=== PATIENT | female | born 1975 | race Caucasian/White ===

== ENCOUNTER 2018-10-08 02:22 | Outpatient (CLI) | payer BC, SELFPAY ==
[2018-10-08 11:53] LABS: ALT 16 U/L (12-78); AST 17 U/L (15-37); Albumin 3.9 g/dL (3.4-5.0); Alkaline Phosphatase 53 U/L (46-116); Anion Gap 10.9 mmol/L (3-11); BUN 15 mg/dL (7-18); Bilirubin, Total 0.5 mg/dL (0.2-1.0); CO2 25.1 mmol/L (21.0-32.0); CREATININE 0.98 mg/dL (0.55-1.02); Calcium 8.8 mg/dL (8.5-10.1); Chloride 104 mmol/L (98-107); Cholesterol 217 mg/dL (50-200); Glucose 91 mg/dL (70-100); HDL Cholesterol 81 mg/dL (40-60); LDL CHOLESTEROL 119 mg/dL (<100); Potassium 3.3 mmol/L (3.5-5.1); Sodium 140 mmol/L (136-145); Total Protein 7.3 g/dL (6.4-8.2); Triglyceride 121 mg/dL (30-150)
== END 2018-10-08 02:42 ==
PROVIDERS: PCP Family Medicine; Visit Provider Family Medicine
DX: Z00.00 Encounter for general adult medical examination without abnormal findings (principal); Z13.220 Encounter for screening for lipoid disorders; Z13.228 Encounter for screening for other metabolic disorders
CPT/HCPCS: 36415; 80053; 80061; 83721

== ENCOUNTER 2018-10-08 11:04 | Outpatient (CLI) | payer BC, SELFPAY ==
--- NOTE | 2018-10-08 13:34 | DI.RAD_ITS ---
SYMPTOMS/DIAGNOSIS: LEFT THUMB PAIN, M79.645 LEFT THUMB: Three views. At the 1st carpometacarpal joint, there does appear to be joint space narrowing and marginal osteophytes present. No acute fracture or dislocation is appreciated. The metacarpophalangeal joint and interphalangeal joint of the thumb appear well maintained. The bones are normally mineralized. No radiopaque foreign bodies are seen in the soft tissues. IMPRESSION: Mild osteoarthritis of the 1st carpometacarpal joint.
== END 2018-10-08 11:24 ==
PROVIDERS: PCP Family Medicine; Visit Provider Family Medicine
DX: M79.645 Pain in left finger(s) (principal); M18.12 Unilateral primary osteoarthritis of first carpometacarpal joint, left hand
CPT/HCPCS: 73140

== ENCOUNTER 2019-10-14 01:27 | Outpatient (CLI) | payer BC, SELFPAY ==
[2019-10-14 11:15] LABS: ALT 18 U/L (14-59); AST 15 U/L (15-37); Albumin 3.8 g/dL (3.4-5.0); Alkaline Phosphatase 48 U/L (46-116); Anion Gap 10.7 mmol/L (3-11); BUN 11 mg/dL (7-18); Bilirubin, Total 0.7 mg/dL (0.2-1.0); CO2 25.3 mmol/L (21.0-32.0); CREATININE 0.83 mg/dL (0.55-1.02); Calcium 8.5 mg/dL (8.5-10.1); Calculated LDL 100 mg/dL (<100); Chloride 105 mmol/L (98-107); Cholesterol 193 mg/dL (<200); Glucose 88 mg/dL (74-106); HDL Cholesterol 75 mg/dL (40-60); Potassium 4.1 mmol/L (3.5-5.1); Sodium 141 mmol/L (136-145); Triglyceride 94 mg/dL (<150)
== END 2019-10-14 01:47 ==
PROVIDERS: PCP Family Medicine; Visit Provider Family Medicine
DX: Z00.00 Encounter for general adult medical examination without abnormal findings (principal); Z13.220 Encounter for screening for lipoid disorders; Z13.228 Encounter for screening for other metabolic disorders
CPT/HCPCS: 36415; 80053; 80061

== ENCOUNTER 2019-10-14 12:19 | Outpatient (REF) | payer BC, SELFPAY ==
--- NOTE | 2019-10-14 11:30 | PAPFT_PTH ---
PATIENT: Donna Ramos LOC: [facility] U#:[id number] AGE/SX: 44/F ROOM: RE10/14/[address]: Shivani Bartlett MD, DC : 1975 BED: DIS: 10/14/2019 SPEC #: [id number] RECD: 10/14/19 18:20 STATUS: ONEIL FERNANDEZ #: [id number] GILMAR: 10/14/19 11:[address]: Shivani Bartlett DEPT: [facility] Cytology RECD BY: Jayda Chiang Tissues: 1 - CX/ENDOCX FOR PAP SMEARS Procedures: PAP THIN PREP/UVM Screening HPV DNA PROBE Comments: [id number]
== END 2019-10-14 12:39 ==
LOC: LBN 12:19
PROVIDERS: PCP Family Medicine; Visit Provider Family Medicine
DX: Z12.4 Encounter for screening for malignant neoplasm of cervix (principal); Z11.51 Encounter for screening for human papillomavirus (HPV)
CPT/HCPCS: 88142; 87624

== ENCOUNTER 2020-10-19 02:43 | Outpatient (CLI) | payer BC, SELFPAY ==
[2020-10-19 12:42] LABS: Abs Immature Grans 0.02 10^3/uL (0.0-0.06); Absolute Basophil Count 0.07 10^3/uL (0.0-0.2); Absolute Eosinophil Count 0.32 10^3/uL (0.0-0.7); Absolute Lymphocyte Count 2.08 10^3/uL (1.2-3.4); Absolute Monocyte Count 0.43 10^3/uL (0.1-0.8); Absolute Neutrophil Count 5.33 10^3/uL (1.2-6.7); Basophils % 0.8; Eosinophils % 3.9; HCT 41.3 % (36.0-46.0); HGB 13.8 g/dL (11.2-15.7); Immature Grans % 0.2; Lymphocytes % 25.2; MCH 32.4 pg (27.0-33.0); MCHC 33.4 % (32.0-36.0); MCV 96.9 fL (80-95); MPV 9.9 fL (8.0-11.0); Monocytes % 5.2; Neutrophils % 64.7; Nucleated RBC 0 %; Platelet Count 305 10^3/uL (130-400); RBC 4.26 10^6/uL (3.93-5.22); RDW 12.2 % (11.7-14.6); WBC 8.25 10^3/uL (4.4-10.8)
[2020-10-19 13:02] LABS: Hemoglobin A1C 4.9 % (<5.7)
[2020-10-19 13:19] LABS: ALT 20 U/L (14-59); AST 17 U/L (15-37); Alkaline Phosphatase 49 U/L (46-116); Anion Gap 7.4 mmol/L (3-11); BUN 12 mg/dL (7-18); Bilirubin, Total 0.7 mg/dL (0.2-1.0); CO2 26.6 mmol/L (21.0-32.0); CREATININE 0.9 mg/dL (0.55-1.02); Calcium 9.3 mg/dL (8.5-10.1); Chloride 104 mmol/L (98-107); Glucose 89 mg/dL (74-106); Potassium 4.3 mmol/L (3.5-5.1); Sodium 138 mmol/L (136-145); TSH (W/Ref FT4) 1.36 uIU/mL (0.36-3.74); Total Protein 7.5 g/dL (6.4-8.2); Vitamin B12 158 pg/mL (193-986)
== END 2020-10-19 02:44 | disposition home or self-care (01) ==
LOC: LOS 02:43
PROVIDERS: PCP Family Medicine; Visit Provider Family Medicine
DX: Z00.00 Encounter for general adult medical examination without abnormal findings (principal); E11.9 Type 2 diabetes mellitus without complications; I10 Essential (primary) hypertension
CPT/HCPCS: 36415; 80053; 82607; 83036; 84443; 85025

== ENCOUNTER 2021-04-05 01:34 | Outpatient (CLI) | payer BC, SELFPAY ==
--- NOTE | 2021-04-05 12:46 | DI.RAD_ITS ---
Exam(s) XR LUMBAR SPINE COMPLETE EXAM: XR LUMBAR SPINE COMPLETE CLINICAL HISTORY: LOW BACK PAIN, M54.5. TECHNIQUE: 2D digital imaging was performed. COMPARISON: No exams were available for comparison FINDINGS: BONES: No fracture or destructive lesion. Vertebral bodies are unremarkable. No facet hypertrophy suman ntified. DISKS: Mild narrowing of the L5-S1 disc and small endplate osteophytes. The remaining intervertebral disc spaces are maintained. ALIGNMENT: Lumbar spinal alignment is within normal limits. SOFT TISSUE: Normal. IUD. Bowel gas pattern unremarkable. IMPRESSION: Mild degenerative disc changes at L5-S1. DATA REPOSITORY: RADIATION DOSE DELIVERED:
--- NOTE | 2021-04-05 12:46 | DI.RAD_ITS ---
Exam(s) XR KNEE LT 3V AP,LAT,ADELA EXAM: XR KNEE LT 3V AP,LAT,ADELA CLINICAL HISTORY: LOW BACK PAIN,LT KNEE PAIN, M25.562. TECHNIQUE: 2D digital imaging was performed. COMPARISON: No exams were available for comparison FINDINGS: BONES: No acute fracture is present. No bony destructive lesion is seen. JOINTS: The knee is normally aligned. No joint effusion is seen. Mild narrowing of the medial femoral tibial joint space and mild periarticular spurring. Mild spurring at the articular aspect of the pa tella. SOFT TISSUE: Normal. IMPRESSION: Mild degenerative changes. DATA REPOSITORY: RADIATION DOSE DELIVERED:
== END 2021-04-05 01:54 ==
PROVIDERS: PCP Family Medicine; Visit Provider Family Medicine
DX: M47.817 Spondylosis without myelopathy or radiculopathy, lumbosacral region; M17.12 Unilateral primary osteoarthritis, left knee
CPT/HCPCS: 73562; 72110

== ENCOUNTER 2021-04-05 02:52 | Outpatient (CLI) | payer BC, SELFPAY ==
[2021-04-05 14:25] LABS: Vitamin B12 518 pg/mL (193-986)
[2021-04-06 10:44] LABS: Lyme Ab w Rflx to Lyme Confirm Negative (Negative)
== END 2021-04-05 02:53 | disposition home or self-care (01) ==
LOC: LBO 02:52
PROVIDERS: PCP Family Medicine; Visit Provider Family Medicine
DX: E53.8 Deficiency of other specified B group vitamins (principal); W57.XXXA Bitten or stung by nonvenomous insect and other nonvenomous arthropods, initial encounter; T14.8XXA Other injury of unspecified body region, initial encounter
CPT/HCPCS: 36415; 82607; 86618

== ENCOUNTER 2021-11-21 04:20 | Outpatient (CLI) | payer BC, SELFPAY ==
[2021-11-21 13:52] LABS: ALT 20 U/L (14-59); AST 21 U/L (15-37); Albumin 3.9 g/dL (3.4-5.0); Alkaline Phosphatase 72 U/L (46-116); Anion Gap 9.3 mmol/L (3-11); BUN 9 mg/dL (7-18); Bilirubin, Total 0.7 mg/dL (0.2-1.0); CO2 28.7 mmol/L (21.0-32.0); CREATININE 0.8 mg/dL (0.55-1.02); Calcium 8.9 mg/dL (8.5-10.1); Chloride 101 mmol/L (98-107); Glucose 97 mg/dL (74-106); Potassium 3.3 mmol/L (3.5-5.1); Sodium 139 mmol/L (136-145); Total Protein 7.1 g/dL (6.4-8.2)
[2021-11-22 14:54] LABS: Vitamin B12 450 pg/mL (193-986)
== END 2021-11-21 04:21 | disposition home or self-care (01) ==
LOC: LBO 04:20
PROVIDERS: PCP Family Medicine; Visit Provider Family Medicine
DX: Z00.00 Encounter for general adult medical examination without abnormal findings (principal)
CPT/HCPCS: 36415; 80053; 82607

== ENCOUNTER 2022-12-12 09:40 | Outpatient (CLI) | payer OTHER, SELFPAY ==
[2022-12-12 12:51] LABS: ALT 33 U/L (14-59); AST 31 U/L (15-37); Albumin 4.1 g/dL (3.4-5.0); Alkaline Phosphatase 80 U/L (46-116); Anion Gap 9.3 mmol/L (3-11); BUN 11 mg/dL (7-18); CO2 27.7 mmol/L (21.0-32.0); CREATININE 0.9 mg/dL (0.55-1.02); Calcium 8.9 mg/dL (8.5-10.1); Calculated LDL 133 mg/dL (<100); Chloride 104 mmol/L (98-107); Cholesterol 240 mg/dL (<200); Estimated GFR 79.35 (mL/min/1.73m2); Glucose 97 mg/dL (74-106); HDL Cholesterol 96 mg/dL (40-60); Potassium 3.9 mmol/L (3.5-5.1); Sodium 141 mmol/L (136-145); TSH (W/Ref FT4) 1.12 uIU/mL (0.36-3.74); Total Protein 7.8 g/dL (6.4-8.2); Triglyceride 55 mg/dL (<150)
== END 2022-12-12 09:41 | disposition home or self-care (01) ==
LOC: LOS 09:41
PROVIDERS: PCP Family Medicine; Referring Provider Family Medicine; Visit Provider Family Medicine
DX: Z00.00 Encounter for general adult medical examination without abnormal findings (principal); I10 Essential (primary) hypertension
CPT/HCPCS: 36415; 80053; 80061; 84443

== ENCOUNTER 2022-12-12 10:51 | Outpatient (REF) | payer OTHER, SELFPAY ==
--- NOTE | 2022-12-12 10:00 | PAPFT_PTH ---
PATIENT: Donna Ramos LOC: [facility] U#:[id number] AGE/SX: 47/F ROOM: RE12/12/[address]: Shivani Bartlett MD, DC : 1975 BED: DIS: 12/12/2022 SPEC #: [id number] RECD: 12/12/22 13:02 STATUS: ONEIL REQ #: [id number] GILMAR: 12/12/22 10:[address]: Shivani Bartlett DEPT: [facility] Cytology RECD BY: Jayda Chiang Tissues: 1 - CX/ENDOCX FOR PAP SMEARS Procedures: PAP THIN PREP/UVM Screening HPV DNA PROBE Comments: [id number]
== END 2022-12-12 10:52 | disposition home or self-care (01) ==
LOC: LBN 10:51
PROVIDERS: PCP Family Medicine; Visit Provider Family Medicine
DX: Z12.4 Encounter for screening for malignant neoplasm of cervix (principal); Z11.51 Encounter for screening for human papillomavirus (HPV)
CPT/HCPCS: 88142; 87624

== ENCOUNTER → 2023-09-12 00:58 | Outpatient (CLI) | payer OTHER, SELFPAY ==
--- NOTE | 2023-09-12 07:45 | DI.RAD_ITS ---
Exam(s) XR SHOULDER RT COMPLETE 2+V EXAM: XR SHOULDER RT COMPLETE 2+V CLINICAL HISTORY: r shoulder pain X6 months,m25.511. TECHNIQUE: 2D digital imaging was performed. COMPARISON: No exams were available for comparison FINDINGS: Five views. There is no evidence of fracture or dislocation nor abnormal soft tissue calcifications. No obvious degenerative changes in the glenohumeral joint. Mild degenerative changes in the AC joint. The a ch romium appears somewhat downsloping. There is no evidence of os acromiale. IMPRESSION: No acute osseous findings. However, the a chromium appears somewhat downsloping and this may be caus ing impingement upon the rotator cuff mechanism. If clinically indicated follow-up MRI can be perfor med. DATA REPOSITORY: RADIATION DOSE DELIVERED:
== END ==
PROVIDERS: PCP Family Medicine; Visit Provider Family Medicine
DX: M25.511 Pain in right shoulder (principal)
CPT/HCPCS: 73030

== ENCOUNTER 2024-01-10 05:51 | Outpatient (CLI) | payer OTHER, SELFPAY ==
[2024-01-10 12:31] LABS: ALT 33 U/L (14-59); AST 34 U/L (15-37); Alkaline Phosphatase 78 U/L (46-116); BUN 9 mg/dL (7-18); Bilirubin, Total 0.7 mg/dL (0.2-1.0); CREATININE 0.9 mg/dL (0.55-1.02); Calcium 8.8 mg/dL (8.5-10.1); Chloride 103 mmol/L (98-107); Estimated GFR 78.86 (mL/min/1.73m2); Glucose 84 mg/dL (74-106); Potassium 3.4 mmol/L (3.5-5.1); Sodium 142 mmol/L (136-145); Total Protein 7.6 g/dL (6.4-8.2)
[2024-01-10 20:30] LABS: Calculated LDL 147 mg/dL (<100); Cholesterol 253 mg/dL (<200); HDL Cholesterol 90 mg/dL (40-60); Triglyceride 84 mg/dL (<150)
== END 2024-01-10 05:52 | disposition home or self-care (01) ==
LOC: LOS 05:51
PROVIDERS: PCP Family Medicine; Visit Provider Family Medicine
DX: I10 Essential (primary) hypertension (principal); Z00.00 Encounter for general adult medical examination without abnormal findings
CPT/HCPCS: 36415; 80053; 80061

== ENCOUNTER → 2024-01-25 00:05 | Outpatient (CLI) | payer OTHER, SELFPAY ==
--- NOTE | 2024-01-25 06:45 | DI.MRI_ITS ---
Exam(s) MR UPPER JOINT RT WO EXAM: MR UPPER JOINT RT WO CLINICAL HISTORY: r shoulder pain despite conservative care,M25.511. TECHNIQUE: Multiplanar multisequence MRI was performed. COMPARISON: CR XR SHOULDER RT COMPLETE 2+V from 09/12/2023 FINDINGS: BONES: There is no fracture or contusion pattern. JOINTS: Mild degenerative changes are seen at the acromioclavicular joint. There is superior subluxa tion of the humeral head relative to the glenoid. TENDONS: Supraspinatus: There is a complete tear of the supraspinatus tendon with retraction to the level almo st to the acromioclavicular joint. Infraspinatus: There is a complete tear of the infraspinatus tendon with retraction almost to the lev el of the glenohumeral joint. Subscapularis: Unremarkable. Teres Minor: Unremarkable. Biceps and [place]: Unremarkable. MUSCLES: Unremarkable. GLENOID LABRUM: Unremarkable on this noncontrast examination. SOFT TISSUES: There is edema seen in the soft tissues around the proximal infraspinatus muscle. LIGAMENTS: Unremarkable. OTHER: There is fluid seen in the subacromial subdeltoid bursa consistent with the patient's large ro tator cuff tear. IMPRESSION: 1. Complete tear of the supraspinatus tendon with retraction almost to the level of the acromioclavic ular joint. 2. Complete tear of the infraspinatus tendon almost to the level of the glenohumeral joint. 3. Superior subluxation of the humeral head relative to the glenoid. 4. Degenerative changes seen at the acromioclavicular joint. DATA REPOSITORY:
== END ==
PROVIDERS: PCP Family Medicine; Visit Provider Family Medicine
DX: M25.511 Pain in right shoulder (principal)
CPT/HCPCS: 73221

== ENCOUNTER 2024-02-29 05:57 | Day surgery (SDC) | payer OTHER, SELFPAY ==
[2024-02-29] VITALS (50 sets, daily range): BP systolic 97–171; BP diastolic 25–108; PULSE 64–92; RESP 12–22; TEMP 36.2–36.7; O2SAT 95–100; BMI 27.8
[2024-02-29] MEDS: Lactated Ringers 1,000 ML 30 ML IV (06:50)
--- NOTE | 2024-02-29 06:58 | W.ANESPRE ---
General Info Date of Service Date Performed: 02/29/24 Height: 5 ft 7 in Weight: 80.6 kg Body Mass Index (BMI): 27.8 Surgical Procedure: Operation Date: 02/29/24 08:10 Proposed Procedure Side Surgeon p Shoulder Massive Rotator Cuff Arthroscopic w/Extensive Debridement, Biceps Tenodesis, Subacromial Decompression, Possible Allograft Superior Capsular Reconstruction Right Milton Chavez MD Meds Allergies and Home Medications Allergies Allergy/AdvReac Type Severity Reaction Status Date / Time nickel Allergy Unknown Water Verified 02/29/24 06:11 blisters/Rash leather Allergy Mild Rash Uncoded 02/29/24 06:11 Home Medication Medication Instructions Recorded hydrochlorothiazide 25 mg tablet 25 mg PO DAILY #90 tabs 09/20/23 mecobalamin (vitamin B12) 1,000 1,000 mcg sublingual DAILY #90 tabs 09/20/23 mcg disintegrating tablet,sublingual metoprolol succinate 100 mg 100 mg PO DAILY #90 tabs 09/20/23 tablet,extended release 24 hr potassium chloride 20 mEq 20 meq PO DAILY #90 tabs 09/20/23 tablet,extended release clonazepam 0.5 mg tablet 0.5 mg PO BID PRN anxiety #10 tabs 10/23/23 atorvastatin 10 mg tablet 10 mg PO DAILY #90 tabs 01/12/24 Current Visit Medications: Current Medications Generic Name Dose Route Start Last Admin Trade Name Freq PRN Reason Stop Dose Admin Droperidol 0.625 mg 02/29/24 06:42 Droperidol 5 Mg/2 Ml Vial IVP 03/30/24 06:41 DIRECTED PRN Nausea Ephedrine Sulfate 0 mg 02/29/24 06:42 Ephedrine 25 Mg/5 Ml Syringe IVP 03/30/24 06:41 DIRECTED PRN Fentanyl 0 mcg 02/29/24 06:42 Fentanyl 100 Mcg/2 Ml Vial IVP 03/30/24 06:41 DIRECTED PRN Hydromorphone HCl 0 mg 02/29/24 06:42 Hydromorphone 2 Mg/Ml Syr IVP 03/30/24 06:41 DIRECTED PRN Ringer's Solution 1,000 mls @ 30 mls/hr 02/29/24 06:00 02/29/24 06:50 IV 03/29/24 23:59 30 mls/hr INFUSION CAMELIA Administration Cefazolin Sodium/Dextrose 2 gm in 50 mls @ 100 mls/hr 02/29/24 06:00 Ancef Duplex IVPB 02/29/24 16:00 PREOP CAMELIA Tranexamic Acid/Sodium Chloride 1,000 mg in 100 mls @ 600 mls/hr 02/29/24 06:00 IVPB 02/29/24 16:00 PREOP CAMELIA IV Miscellaneous Supplies 1 each 02/29/24 06:00 Iv Access IV 03/29/24 23:59 DIRECTED CAMELIA Naloxone HCl 0 mg 02/29/24 06:42 Naloxone 0.4 Mg/Ml Vial IVP 03/30/24 06:41 PRN PRN Sodium Chloride 0 ml 02/29/24 06:00 Normal Saline Flush 10 Ml Syr IV 03/29/24 23:59 PRN PRN Sodium Chloride 0 ml 02/29/24 06:00 Normal Saline 10 Ml Vial IJ 03/29/24 23:59 DIRECTED PRN Sterile Water 0 ml 02/29/24 06:00 Water,Injection,Sterile 10 Ml Vial IJ 03/29/24 23:59 DIRECTED PRN PFSH Active Problems Active Problems: Problem Status Onset Code Tendonitis of long head of biceps brachii of right shoulder M75.21 Traumatic tear of right rotator cuff S46.011A Supraspinatus tendon tear M75.100 Encounter for screening colonoscopy Z12.11 Neck pain M54.2 Varicose vein of leg I83.90 Skin change R23.9 Tick bite W57.XXXA Left knee pain M25.562 Low back pain M54.5 Bilateral lower extremity pain M79.604, M79.605 IUD (intrauterine device) in place Z97.5 B12 deficiency E53.8 Contraception management Z30.9 Annual physical exam 09/11/17 Z00.00 Asthma J45.909 Essential hypertension I10 Raynaud's phenomenon without gangrene 03/12/18 I73.00 Right shoulder pain M25.511 Medical History Medical History Aphagia Knee pain Piriformis syndrome of both sides Pain of left thumb Medical History Comments:: Pt. requests NOT be in post op room until she is full awake from anesthesia Surgical History Surgical History Hx of arthroscopy of left knee Tobacco Smoking/Tobacco Use Status: Former Tobacco Use Passive smoking exposure: Yes Second hand exposure: Yes Alcohol Alcohol Intake: current Alcohol intake frequency: a few times a week Alcohol type: wine Substance Use Substance use: Occasionally Substance use type: marijuana Details: alcohol: t-1, couple glasses. Marijuana: t-1, one hitter Vital Signs and Lab Results Vital Signs Most Recent Vital Signs in EMR: Most Recent Vital Signs Temp Pulse Resp BP Pulse Ox 36.7 C 73 18 158/108 H 100 02/29/24 06:18 02/29/24 06:18 02/29/24 06:18 02/29/24 06:18 02/29/24 06:18 Point of Care Results Point of Care Results: POC- Test(urine) Negative 02/29/24 06:55 Lab Results Blood Type / Crossmatch: No Data to Display Complete Blood Count: No Data to Display Complete Metabolic Panel: No Data to Display Liver Function Panel: No Data to Display Coagulation Panel: No Data to Display Cardiac Panel: No Data to Display Arterial Blood Gas: No Data to Display Venous Blood Gas: No Data to Display Pancreas Panel: No Data to Display Thyroid Panel: No Data to Display Infectious Disease: No Data to Display Blood Cultures: No Data to Display Toxicology Panel: No Data to Display Panel: No Data to Display Anesthesia Assessment and Plan Anesthesia History Personal History: No History of Anesthesia Complications Family History: No Family History of Anesthesia Complications Exercise Tolerance Exercise Tolerance: Metabolic Equivalents>4 Pertinent Negatives Pertinent Negatives: No Symptoms of GERD Cardiac & Pulmonary Exam Cardiac Exam: Normal S1/S2 Heart Sounds Pulmonary Exam: Clear Bilateral Breath Sounds Implantable Cardiac Device Does patient have a Pacemaker or an ICD?: No Airway Exam Known Difficult Airway: No Mallampati Class: 2 Mouth Opening: Normal (> 3cm) Thyromental Distance: Greater than 3 cm Neck Range of Motion: Full ROM Neck Circumference: Normal Teeth Condition: Normal Dentition ASA Classification ASA Score: ASA 2 Emergency Case?: No NPO Status NPO Status: NPO Clears >2 hours, Solids >8 hours Status Status: Not Relevant due to Medical History Anesthesia Plan Resuscitation Status: Full Code Anesthesia Technique: General Anesthesia Airway Planned: Endotracheal Tube Pain Management: Surgeon and patient request nerve block Monitors Used: Standard Monitors
--- NOTE | 2024-02-29 07:06 | W.PM.DSUDISC ---
Date of service: 02/29/24 Time of Service: 14:00 Discharge Plan Disposition Patient Disposition: Home Condition: Stable Discharge Details Attending Provider: Milton Chavez Primary Care Provider: Shivani Bartlett Home Meds and New Rx's Prescriptions: New naproxen 250 mg tablet 250 - 500 mg PO BID PRN (Reason: moderate pain and swelling) Qty: 40 0RF oxycodone 5 mg tablet 5 - 10 mg PO .q4-6h PRN (Reason: severe pain) Qty: 18 0RF Continued hydrochlorothiazide 25 mg tablet 25 mg PO DAILY Qty: 90 3RF mecobalamin (vitamin B12) 1,000 mcg tablet,disintegrating 1,000 mcg sublingual DAILY Qty: 90 3RF Rx Instructions: place tablet under tongue and allow to dissolve for at least30 secs before swallowing potassium chloride 20 mEq tablet extended release 20 meq PO DAILY Qty: 90 3RF metoprolol succinate 100 mg tablet extended release 24 hr 100 mg PO DAILY Qty: 90 3RF clonazepam 0.5 mg tablet 0.5 mg PO BID PRN (Reason: anxiety) Qty: 10 0RF atorvastatin 10 mg tablet 10 mg PO DAILY Qty: 90 4RF No Action ibuprofen-acetaminophen [Advil Dual Action] 125-250 mg tablet 1 tab PO ONCE Patient Comments: pt. reports it is motrin dual action-could not find on pick list Discharge Instructions Additional Instructions: Surgery: Right shoulder arthroscopy with allograft superior capsule reconstruction, posterior rotator cuff repair, biceps transposition tenodesis, extensive debridement, and subacromial decompression. Activity: For 6 weeks, you should keep your arm at your side in a neutral position at all times except for physical therapy. Do not try to lift or raise your arm using your own muscles. You should use the sling whenever you are out of the house. At home it is best to remove the sling and rest the arm on a pillow at your side or support the operative side with your other hand. You may allow the arm to dangle at your side. A physical therapy prescription will be sent electronically to begin in about 3 weeks. CONSERVATIVE protocol. Prescriptions: Naproxen 250 mg take 1-2 every 12 hours with a meal as needed for moderate pain Oxycodone 5 mg take 1-2 every 4-6 hours as needed for severe pain You may use [id number]-[id number] Tylenol (acetaminophen) as needed for mild pain. These pain medications may be taken all at once or in different combinations as needed. Also, recommend Colace (docusate) as a stool softener as surgery and pain medicine cause constipation. You may try [id number] diphenhydramine (Benadryl) 25-50 mg nightly as a sleep aid Dressings: Remove shoulder bandage after 3 days. Leave the sticky Steri-Strips in place until they fall off or remove them after you shower. Cover the incisions with Band-Aids or leave them open to air. You may shower after 5 days. Follow-up: 10-[address] Chavez You may take off the leg compression stockings this evening at home. You may also leave them on a few days longer if you have a history of leg swelling or edema. Let us know right away if you develop any redness, drainage, fevers, chest pain, or trouble breathing. Do not drink alcohol or drive for at least 24 hours after anesthesia. Please call the office during business hours with any questions or concerns. Discharge Orders Discharge Orders: Discharge Order (Routine); Ordered 02/29/24 Ordered By: Torie Blood DS: Diagnosis Discharge Diagnosis (1) Traumatic tear of right rotator cuff: Status: Acute (2) Tendonitis of long head of biceps brachii of right shoulder: Status: Acute
--- NOTE | 2024-02-29 07:25 | ROE_ITS ---
Date of service: 02/29/24 Time of Service: 08:30 Operative Note Operative Note DATE OF PROCEDURE: 02/29/24 PRE-OP DIAGNOSIS: Right: 1. Massive retracted rotator cuff tear 2. LHB tendinopathy 3. Impingement POST-OP DIAGNOSIS: same PROCEDURE: Right: 1. rotator cuff repair, CPT# 58892. This involved repair of the infraspinatus remnant to the reconstruction and greater tuberosity 2. Arthroscopic superior capsular reconstruction, CPT #27281: This involved dermal allograft reconstruction of deficient superior capsule to maintain glenohumeral stability and prevent superior humeral migration. 3. Arthroscopic biceps tenodesis, CPT# 78740. This involved arthroscopically suturing and transposing the long head of the biceps tendon to to the anterior greater tuberosity to add soft tissue coverage in this deficient area and help prevent anterior superior escape 3. Extensive debridement, CPT# 37579. This involved using arthroscopic hand instruments, power instruments, and radiofrequency instruments to debride rotator interval synovitis, mild anterior and posterior labral tear fraying, resect humeral head chronic bone prominences as part of a light tuberoplasty to increase acromiohumeral interval 4. Subacromial decompression with partial acromioplasty, CPT# 16410. This involved using arthroscopic power instruments and a radiofrequency wand to complete a bursectomy and smooth the undersurface of the acromion. The logging assistant was medically required in order to help assist in techniques above, which require positioning the arm, holding the arthroscope, and manipulating multiple instruments and sutures at the same time. This cannot be done without the help of an experienced logging assistant. SURGEON: Milton Chavez RN LVN: Torie Blood ANESTHESIA TYPE: Local By Surgeon, General LMA/ETT and Primary Nerve Block Refer to Anesthesia Record ESTIMATED BLOOD LOSS: 10 PATHOLOGY: none sent COMPLICATIONS: None Patient was transported to: PACU Patient's condition: stable Implants: Arthrex: 4.75mm SwiveLocks x 4 and 3.9mm knotless Corkscrew anchors x 3 Indications: The patient was diagnosed with the above conditions and appropriately indicated for surgical intervention. Please see complete medical record for details. Findings: Exam under anesthesia: Full range of motion no instability Glenohumeral joint: Largely intact articular cartilage, mild anterior posterior labral fraying. Moderate rotator interval synovitis with adhesions and disruption of the biceps sling and anterior supraspinatus over the transverse humeral ligament. Subscapularis intact. Obvious superior and posterior superior rotator cuff void. No significant SLAP tear. Subacromial space: Obvious complete retracted supraspinatus infraspinatus rotator cuff tearing to about the level of the glenoid with minimal excursion and somewhat chronic?appearing abnormal supraspinatus tendon either calcified or steroid deposit. Tear extending from over the biceps too far posterior nearing the equator teres versus infraspinatus. Chronic bone small prominence across greater tuberosity without inflammatory or soft tissue indicating recent injury. Moderate infraspinatus tendon remnant left behind on the greater tuberosity more posteriorly. Procedure Description: In the operating room, general anesthesia was induced. Bilateral shoulders were examined. The patient was positioned in the beachchair position. All bony prominences were well-padded. Preoperative antibiotics were administered. The shoulder was prepped and draped in the usual sterile fashion. The correct patient, procedure, and side of the procedure were all verified prior to incision. Starting through the posterior portal a standard complete diagnostic arthroscopy was performed of the glenohumeral joint including inspection of the long head of the biceps, anterior and superior labrum, subscapularis tendon, supraspinatus and infraspinatus tendons, and axillary recess. The glenoid and humeral head cartilage as well as the posterior labrum were inspected from an anterior viewing portal. Significant findings and interventions noted above. The massive rotator cuff tear was thoroughly inspected. Debrided of abnormal calcified or steroid deposit supraspinatus. It was mobilized above and below the cuff, did not actually have too many adhesions, but probably because the cuff was already retracted to about the level of the glenoid and even with the labrum. There was not enough tendon or excursion to complete really any repair of the supraspinatus or infraspinatus to the greater tuberosity bone even a single or medialized row. The defect continued again from in front anterior to the biceps involving the transverse humeral ligament too far posterior about the equator until there was some intact and uninjured probably teres or partial infraspinatus tendon. Given the young age and relatively high demand patient, everything was then prepared and done to optimize as of this shoulder and pre vent as best possible the need for additional surgery like muscle transfer or reverse total shoulder arthroplasty at a low young age. Fortunately, the subscapularis and cartilage were intact. The glenoid was prepared while preserving the superior labrum and biceps and biceps anchor at the base of the coracoid, superiorly, and posterior superiorly only lightly requiring debridement of the rotator cuff throughout this area given the minimal remnant. Percutaneous portals were established and the corkscrew spear and then drill used to then place the anterior, superior, and posterior glenoid knotless repair sutures. The greater tuberosity was prepared to optimize bone tendon healing. A suture tape FiberLink was shuttled around the biceps tendon at the level of the articular cartilage margin and then mobilized somewhat posteriorly in order to optimize coverage through this large defect, keep the biceps tendon more superiorly, and help prevent superior primary showed an anterior superior escape. The biceps tendon gave the appearance of impending medial subluxation/instability given disruption of the transverse humeral's ligament and biceps sling. The suture was then shuttled through the biceps tendon completing the loop and lock configuration. The anterior medial row anchor was then punched and placed containing the biceps repair suture and also loaded with the FiberTape, completing the biceps transposition tenodesis. A posterior medial row anchor was then placed. Both medial row anchors were additionally loaded with knotless mechanisms in addition to the FiberTape's. The arm was positioned for SCR, measuring guide used to determine the dimensions of the graft, the graft prepared on the back table and brought over to the arm with the FiberTape's and knotless repair sutures passed through the medial row positions. Sequentially then from anterior to posterior the glenoid and knotless repair and shuttle sutures were retrieved and passed to the graft and horizontal mattress at its glenoid margin and back through their knotless corkscrew anchors. The glenoid raft was then delivered through the 12 mm passport cannula while maintaining appropriate orientation, removing slack from the medial row tapes and knotless sutures and delivering the glenoid aspect of the graft to the glenoid fixation using the knotless mechanisms with good deployment and coverage medially. The glenoid sutures were provisionally tightened and the graft ensured to be appropriate above the superior labrum biceps, no sutures entangled, and below the cuff remnant posteriorly and money room supervisor ior superiorly. The medial row knotless repair sutures were then shuttled through each other cannula completing a knotless double larry type repair which was only provisionally tensioned down. The FiberTape's were then brought out laterally completing the speed bridge repair over the tuberosity 2 lateral row 4.75 mm SwiveLock anchors. The glenoid sutures were final tightened. The medial row fixation was final tightened. The graft had excellent tissue coverage and positioning spanning the large defect. Glenoid and tuberosity fixation was strong. Lastly, 2 ymwl-xn-fnej FiberWire repair sutures were done between the posterior aspect of the graft and the far posterior rotator cuff nicely securing and reapposed in the cuff to the graft secured with SMC arthroscopic knots. The shoulder was drained of arthroscopic fluid. All portal sites were copiously irrigated. These incisions were closed using 3-0 Monocryl in a buried fashion and then covered with Mastisol, Steri-Strips, Xeroform, dry gauze, and ABDs. The dressings were covered and secured with Medipore tape. The operative extremity was placed into a sling for immobilization. The patient awoke from anesthesia without complication and was transferred to the recovery room in a stable condition.
--- NOTE | 2024-02-29 07:50 | W.ANESNERVE ---
Nerve Block Single Injection Procedure Date and Time Date Performed: 02/29/24 Procedure Start: 07:34 Location Where Procedure Performed Procedure Location: Day Surgery Unit Reason Performed: Postoperative Analgesia Requesting Provider: Milton Chavez Timeout Performed Timeout Performed: Yes Monitoring Used ECG, Blood Pressure, SpO2 and See EMR for corresponding vital signs Sterility Sterility: Hand Hygiene, Surgical Cap, Surgical Mask, Sterile Gloves, Eye Protection and Chlorhexidine Sedation Given During Procedure Sedation Given (Indicate Dose Given): Versed IV Dose:: 5mg IVP Patient Mental Status Patient Mental Status: Sedate with meaningful communication Nerve Block 1st Nerve Block: Laterality: Right Block Type: Interscalene Ultrasound Image Saved?: Yes Needle / Catheter Used: 80mm SonoPlex II Local Anesthetic Bolus (Indicate Dose Given): Lidocaine used for local infiltration of skin, Bupivacaine 0.5% Dose:: 0.5%/10cc (50mg) and Exparel Dose:: 1.3%/10cc (133mg) Additives (Indicate Dose Given): Epinephrine to make 1:200,000 (5mcg/ml) Dose:: 100mcg/20cc and Decadron Dose:: 10mg PF Ultrasound: Sterile probe cover and gel used Nerve Stimulator: Not Used Paresthesia: None Procedure Tolerated: No Complications and Patient tolerated well Procedure Outcome: Successful Performed By: Stanley Wilhelm
[2024-02-29] MEDS: ceFAZolin 2 GM/50 ML BAG IVPB (08:30)
[2024-02-29] MEDS: TRANEXAMIC ACID/SOD. CHL. 1,000 MG/100 ML BAG 600 MG IVPB (08:51)
[2024-02-29] MEDS: EPINEPHrine 10 MG/10 ML ML ×2 (09:15→10:30)
[2024-02-29] MEDS: Bupivacaine 0.25% Pres-Free W/EPI 30 ML VIAL (10:00)
--- NOTE | 2024-02-29 14:12 | W.ANESPOSTOP ---
Postoperative Evaluation Date, Time and Location Date Performed: 02/29/24 Time Performed: 14:12 Patient Location: Day Surgery Unit Vital Signs Most Recent Imported Vital Signs: Most Recent Vital Signs Temp Pulse Resp BP Pulse Ox 36.3 C L 69 18 127/88 100 02/29/24 13:30 02/29/24 13:30 02/29/24 13:30 02/29/24 13:30 02/29/24 13:30 Pain Score Most Recent Pain Score: Most Recent Pain Score Pain Level 0 02/29/24 13:30 Assessment Mental Status: Awake (Alert & Oriented to Patient Baseline) Airway and Respiratory Function: Patent airway with normal (patient baseline) respiratory exam Cardiovascular Function: Hemodynamically Stable Hydration Status: Adequately Hydrated Nausea & Vomiting: No Nausea or Vomiting Pain: Pain is tolerable per patient Peripheral Nerve Block: Regional nerve block not resolved at time of post operative discharge
== END 2024-02-29 15:10 | disposition home or self-care (01) ==
PROVIDERS: PCP Family Medicine; Visit Provider Student in an Organized Health Care Education/Training Program
PROC: (CPT 29827; principal; 2024-02-29 08:00)
DX: S46.011A Strain of muscle(s) and tendon(s) of the rotator cuff of right shoulder, initial encounter (principal); M75.21 Bicipital tendinitis, right shoulder; X58.XXXA Exposure to other specified factors, initial encounter
CPT/HCPCS: 29806; 29827; 29828; 29823; 29826; 76942; 81025; C9290; J0131; J0171; J0665; J0690; J1100; J1885; J2001; J2250; J2371; J2405; J2704; J3370

== ENCOUNTER 2024-09-08 06:04 | Day surgery (SDC) | payer OTHER, SELFPAY ==
--- NOTE | 2024-09-07 16:45 | W.PREOPHP ---
Assessment and Plan Assessment and plan (1) Encounter for screening colonoscopy: Status: Acute Assessment and plan: Donna and I reviwed the plan for a screening colonscpoy. I explained the role of colonoscopy in routine health maintenance. I explaied the risks and the benefits and she had the chance to ask any questions. She is able to provide informed consent and we can proceed with colonscopy as planned. History of Present Illness History of Present Illness Chief Complaint: screening colonoscopy Narrative: 49 y/o female with history of HTN, HLD and asthma presents for colonoscopy screening pre-op. She denies a family history of colon cancer. She reports that she ensures removing seeds, because in the past she has noticed bright red bloody stools after eating them. Denies any changes in bowel habits including black tarry stools, abdominal pain, diarrhea or constipation. She denies constitutional symptoms. She denies chest pain, palpitations, dyspnea or dyspnea with exertion. She denies prior history or family history of adverse reactions or complications with anesthesia. The patient denies any history of stroke, ND, seizures, bleeding or clotting disorders. She denies having any implanted metal in her body. PFSH All Active Problems Neuropathy (Acute) Tendonitis of long head of biceps brachii of right shoulder (Acute) Traumatic tear of right rotator cuff (Acute) s/p Right shoulder arthroscopy with allograft superior capsule reconstruction, posterior rotator cuff repair, biceps transposition tenodesis, extensive debridement, and subacromial decompression 02/29/24 Supraspinatus tendon tear (Acute) Encounter for screening colonoscopy (Acute) Neck pain (Acute) Varicose vein of leg (Acute) Skin change (Acute) Tick bite (Acute) Left knee pain (Acute) Low back pain (Acute) Bilateral lower extremity pain (Acute) IUD (intrauterine device) in place (Acute) B12 deficiency (Acute) Contraception management (Acute) Annual physical exam (Acute 09/11/17) Asthma (Chronic) Essential hypertension (Chronic) Raynaud's phenomenon without gangrene (Chronic 03/12/18) Right shoulder pain (Chronic) Medical History Aphagia Knee pain Piriformis syndrome of both sides Pain of left thumb Surgical History Hx of arthroscopy of left knee Family History Mother No problems noted. Father Mumps Essential hypertension Hyperlipidemia Rheumatic fever Aortic valve replaced Brother Essential hypertension Hyperlipidemia Maternal Grandfather Essential hypertension Paternal Grandfather Essential hypertension Polio 1950 Maternal Grandmother Essential hypertension Hyperlipidemia Paternal Grandmother Essential hypertension Hyperlipidemia Social History Smoking/Tobacco Use Status: Former Tobacco Use tobacco type: cigarettes Quit Date: 09/17/97 Tobacco: How many years used: 3 Second Hand Exposure: Yes Smoking risk assessment performed?: Yes Alcohol Intake: current Alcohol Intake frequency: 0-2 drinks per day Alcohol type: wine Drug use: Daily Substance use type: marijuana Caregiver/Support person: No Household members: spouse Housing: house Communication Needs: None Do you need help understanding health information?: Never Pets and animals: Yes Pets and animals: dog(s) Sexually active: Yes Do you think of yourself as: straight/heterosexual Current gender identity: female What is your relationship status?: How often do you talk on the phone with friends or family?: three or more times per week How often do you get together with friends or relatives?: once per week How often do you attend congregation or taoism services?: 1-3 times per year Do you belong to any clubs or organized social groups?: yes Panel score (0-1 are the most socially isolated patients): 3 NHANES result reviewed/action taken: Yes What type of physical activity do you participate in: other Details: Pilates Duration: 45-60 minutes/day Frequency: 3-4 times per week Liliana/Oriental Orthodox: Shinto Special liliana needs: No Seatbelt use: always Helmet use: Yes Helmet use: sometimes Drive intox or ride w/intox 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 Do you feel safe at home: Yes Do you feel safe in your relationship?: Yes Meds Allergies and Home Medications Allergies Allergy/AdvReac Type Severity Reaction Status Date / Time nickel Allergy Unknown Water Verified 09/03/24 15:08 blisters/Rash leather Allergy Mild Rash Uncoded 09/03/24 15:08 Home Medications ?Medication ?Instructions ?Recorded ?Confirmed ?Type mecobalamin (vitamin B12) 1,000 1,000 mcg sublingual DAILY #90 tabs 09/20/23 09/08/24 Rx mcg disintegrating tablet,sublingual metoprolol succinate 100 mg 100 mg PO DAILY #90 tabs 09/20/23 09/08/24 Rx tablet,extended release 24 hr clonazepam 0.5 mg tablet 0.5 mg PO BID PRN anxiety #10 tabs 10/23/23 09/08/24 Rx atorvastatin 10 mg tablet 10 mg PO DAILY #90 tabs 01/12/24 09/08/24 Rx triamterene 100 mg capsule 100 mg PO DAILY #90 caps 08/28/24 09/08/24 Rx
--- NOTE | 2024-09-07 16:48 | W.PM.DSUDISC ---
Date of service: 09/08/24 Discharge Plan Disposition Patient Disposition: Home Condition: Good Discharge Details Reason For Visit: screening colonoscopy Attending Provider: Stephen Seay Primary Care Provider: Shivani Bartlett Home Meds and New Rx's Prescriptions: Continued mecobalamin (vitamin B12) 1,000 mcg tablet,disintegrating 1,000 mcg sublingual DAILY Qty: 90 3RF Rx Instructions: place tablet under tongue and allow to dissolve for at least30 secs before swallowing metoprolol succinate 100 mg tablet extended release 24 hr 100 mg PO DAILY Qty: 90 3RF clonazepam 0.5 mg tablet 0.5 mg PO BID PRN (Reason: anxiety) Qty: 10 0RF atorvastatin 10 mg tablet 10 mg PO DAILY Qty: 90 4RF triamterene 100 mg capsule 100 mg PO DAILY Qty: 90 4RF Discontinued bisacodyl [Dulcolax (bisacodyl)] 5 mg tablet,delayed release (DR/EC) 5 mg PO ONCE Qty: 4 0RF Rx Instructions: Take per colonoscopy instructions provided by ordering providers office polyethylene glycol 3350 17 gram/dose powder 17 g PO ONCE Qty: 238 0RF Rx Instructions: Take per colonoscopy instructions provided by ordering providers office Discharge Instructions Instructions: Diverticulosis Additional Instructions: Chip Doherty, it was very nice meeting you today, and I hope you are comfortable during the procedure and the make a quick recovery. Everything went very smoothly. You have some internal and external hemorrhoids that I do not think are anything to worry about. You also have some sigmoid diverticulosis. Diverticula are little weak spots in the muscular part of the colon wall. This causes the inside lining to pooch outwards a little bit forming small pockets. Most patients that I meet have diverticulosis and are never bothered by it. However, these can get infected, inflamed, and can bleed from time to time. Maintaining a diet that is rich in fiber, staying well-hydrated, and avoiding constipation's are probably the best way to help manage it. This will also help with hemorrhoids. Have attached a little bit of information here about typical approaches to diverticular disease. Otherwise, your colonoscopy was negative. With minimal risk factors for colon cancer, you will be good for 10 years for your next colonoscopy. If you need anything or have any questions, please do not hesitate to ask. 1. If tolerated, consume a soft, low fiber diet for 1-2 days. [address] Do not drive, drink alcohol, operate machinery, make critical decisions, or do activities that require coordination or balance for 24 hours. 3. Because air was put into your colon during the procedure, expelling air from your rectum (passing gas or farting) is normal. 4. You may not have a bowel movement for 1-3 days because of the colonoscopy prep. This is normal. 5. Go directly to the emergency room if you notice any of the following: Develop chills (warm to touch), or if you have a thermometer and your temperature is above 101 Difficulty breathing or difficultly swallowing Persistent vomiting Severe abdominal pain, other than gas cramps Severe chest pain Black, tarry stools Any bleeding ? exceeding one tablespoon 6. Call your physician if the site where your intravenous was started becomes red, swollen, painful, and warm to touch. 7. Your physician has reviewed your pre-procedure medications. Please continue to take those medications as previously ordered. You will be given specific information/education regarding any changes to your medications before leaving. Activity:: Activity as Tolerated Diet:: As Tolerated Discharge Orders Discharge Orders: Discharge Order (Routine); Ordered 09/07/24 Ordered By: Stephen Seay DS: Diagnosis Discharge Diagnosis (1) Encounter for screening colonoscopy: Status: Acute Asessment and Plan: Diverticulosis; otherwise negative screening colonoscopy
[2024-09-08 06:20] VITALS: BP 138/96; PULSE 80; RESP 16; TEMP 36.5; O2SAT 100
--- NOTE | 2024-09-08 07:03 | ANES.PREOP_ITS ---
General Info Date of Service Date Performed: 09/08/24 Height: 5 ft 7 in Weight: 80.5 kg Body Mass Index (BMI): 27.8 Surgical Procedure: Operation Date: 09/08/24 07:35 Proposed Procedure Side Surgeon brayan Seay MD Meds Allergies and Home Medications Allergies Allergy/AdvReac Type Severity Reaction Status Date / Time nickel Allergy Unknown Water Verified 09/03/24 15:08 blisters/Rash leather Allergy Mild Rash Uncoded 09/03/24 15:08 Home Medication ?Medication ?Instructions ?Recorded mecobalamin (vitamin B12) 1,000 1,000 mcg sublingual DAILY #90 tabs 09/20/23 mcg disintegrating tablet,sublingual metoprolol succinate 100 mg 100 mg PO DAILY #90 tabs 09/20/23 tablet,extended release 24 hr clonazepam 0.5 mg tablet 0.5 mg PO BID PRN anxiety #10 tabs 10/23/23 atorvastatin 10 mg tablet 10 mg PO DAILY #90 tabs 01/12/24 triamterene 100 mg capsule 100 mg PO DAILY #90 caps 08/28/24 Current Visit Medications: Current Medications Generic Name Dose Route Start Last Admin Trade Name Freq PRN Reason Stop Dose Admin IV Miscellaneous Supplies 1 each 09/08/24 06:00 Iv Access IV 09/08/24 23:59 DIRECTED [facility] Ondansetron HCl 4 mg 09/07/24 16:50 Ondansetron 4 Mg/2 Ml Vial IVP 10/07/24 16:49 Q4H PRN PRN Nausea / Vomiting Sodium Chloride 0 ml 09/08/24 06:00 Normal Saline Flush 10 Ml Syr IV 09/08/24 23:59 PRN PRN Sodium Chloride 0 ml 09/08/24 06:00 Normal Saline 10 Ml Vial IJ 09/08/24 23:59 DIRECTED PRN Sterile Water 0 ml 09/08/24 06:00 Water,Injection,Sterile 10 Ml Vial IJ 09/08/24 23:59 DIRECTED PRN PFSH Active Problems Active Problems: Problem Status Onset Code Neuropathy Acute G62.9 Tendonitis of long head of biceps brachii of right shoulder Acute M75.21 Traumatic tear of right rotator cuff Acute S46.011A Supraspinatus tendon tear Acute M75.100 Encounter for screening colonoscopy Acute Z12.11 Neck pain Acute M54.2 Varicose vein of leg Acute I83.90 Skin change Acute R23.9 Tick bite Acute W57.XXXA Left knee pain Acute M25.562 Low back pain Acute M54.5 Bilateral lower extremity pain Acute M79.604, M79.605 IUD (intrauterine device) in place Acute Z97.5 B12 deficiency Acute E53.8 Contraception management Acute Z30.9 Annual physical exam Acute 09/11/17 Z00.00 Asthma Chronic J45.909 Essential hypertension Chronic I10 Raynaud's phenomenon without gangrene Chronic 03/12/18 I73.00 Right shoulder pain Chronic M25.511 Medical History Medical History Aphagia Knee pain Piriformis syndrome of both sides Pain of left thumb Medical History Comments:: Pt. requests NOT be in post op room until she is full awake from anesthesia Surgical History Surgical History Hx of arthroscopy of left knee Tobacco Smoking/Tobacco Use Status: Former Tobacco Use Passive smoking exposure: Yes Second hand exposure: Yes Alcohol Alcohol Intake: current Alcohol intake frequency: 0-2 drinks per day Alcohol type: wine Substance Use Substance use: Daily Substance use type: marijuana Vital Signs and Lab Results Vital Signs Most Recent Vital Signs in EMR: Most Recent Vital Signs Temp Pulse Resp BP Pulse Ox 36.5 C 80 16 138/96 H 100 09/08/24 06:20 09/08/24 06:20 09/08/24 06:20 09/08/24 06:20 09/08/24 06:20 Lab Results Blood Type / Crossmatch: No Data to Display Complete Blood Count: No Data to Display Complete Metabolic Panel: No Data to Display Liver Function Panel: No Data to Display Coagulation Panel: No Data to Display Cardiac Panel: No Data to Display Arterial Blood Gas: No Data to Display Venous Blood Gas: No Data to Display Pancreas Panel: No Data to Display Thyroid Panel: No Data to Display Infectious Disease: No Data to Display Blood Cultures: No Data to Display Toxicology Panel: No Data to Display Panel: No Data to Display Anesthesia Assessment and Plan Anesthesia History Personal History: No History of Anesthesia Complications Family History: No Family History of Anesthesia Complications Exercise Tolerance Exercise Tolerance: Metabolic Equivalents>4 Pertinent Negatives Pertinent Negatives: No Symptoms of GERD, No Major Cardiovascular Symptoms or Complaints, No Major Pulmonary Symptoms or Complaints and No History of CVA/TIA Cardiac & Pulmonary Exam Cardiac Exam: Normal S1/S2 Heart Sounds Pulmonary Exam: Clear Bilateral Breath Sounds Implantable Cardiac Device Does patient have a Pacemaker or an ICD?: No Airway Exam Known Difficult Airway: No Mallampati Class: 2 Mouth Opening: Normal (> 3cm) Thyromental Distance: Greater than 3 cm Neck Range of Motion: Full ROM Neck Circumference: Normal Teeth Condition: Normal Dentition ASA Classification ASA Score: ASA 2 Emergency Case?: No NPO Status NPO Status: NPO Clears >2 hours, Solids >8 hours Status Status: Negative HCG Anesthesia Plan Resuscitation Status: Full Code Anesthesia Technique: General Anesthesia Airway Planned: Natural Airway Monitors Used: Standard Monitors
--- NOTE | 2024-09-08 07:10 | HPE_ITS ---
Assessment and Plan Assessment and plan (1) Encounter for screening colonoscopy: Status: Acute Assessment and plan: We reviewed the plan for screening colonoscopy today, and I explained the risks of the procedure. She is able to provide informed consent, we can proceed with colonoscopy as planned. History of Present Illness History of Present Illness Chief Complaint: Screening colonoscopy Narrative: 49 y/o female with history of HTN, HLD and asthma presents for colonoscopy screening pre-op. She denies a family history of colon cancer. She reports that she ensures removing seeds, because in the past she has noticed bright red bloody stools after eating them. Denies any changes in bowel habits including black tarry stools, abdominal pain, diarrhea or constipation. She denies constitutional symptoms. She denies chest pain, palpitations, dyspnea or dyspnea with exertion. She denies prior history or family history of adverse reactions or complications with anesthesia. The patient denies any history of stroke, NM, seizures, bleeding or clotting disorders. She denies having any implanted metal in her bod y. Since her last encounter, there have been no significant interval changes to the history PFSH All Active Problems Neuropathy (Acute) Tendonitis of long head of biceps brachii of right shoulder (Acute) Traumatic tear of right rotator cuff (Acute) s/p Right shoulder arthroscopy with allograft superior capsule reconstruction, posterior rotator cuff repair, biceps transposition tenodesis, extensive debridement, and subacromial decompression 02/29/24 Supraspinatus tendon tear (Acute) Encounter for screening colonoscopy (Acute) Neck pain (Acute) Varicose vein of leg (Acute) Skin change (Acute) Tick bite (Acute) Left knee pain (Acute) Low back pain (Acute) Bilateral lower extremity pain (Acute) IUD (intrauterine device) in place (Acute) B12 deficiency (Acute) Contraception management (Acute) Annual physical exam (Acute 09/11/17) Asthma (Chronic) Essential hypertension (Chronic) Raynaud's phenomenon without gangrene (Chronic 03/12/18) Right shoulder pain (Chronic) Medical History Aphagia Knee pain Piriformis syndrome of both sides Pain of left thumb Surgical History Hx of arthroscopy of left knee Family History Mother No problems noted. Father Mumps Essential hypertension Hyperlipidemia Rheumatic fever Aortic valve replaced Brother Essential hypertension Hyperlipidemia Maternal Grandfather Essential hypertension Paternal Grandfather Essential hypertension Polio 1950 Maternal Grandmother Essential hypertension Hyperlipidemia Paternal Grandmother Essential hypertension Hyperlipidemia Social History Smoking/Tobacco Use Status: Former Tobacco Use tobacco type: cigarettes Quit Date: 09/17/97 Tobacco: How many years used: 3 Second Hand Exposure: Yes Smoking risk assessment performed?: Yes Alcohol Intake: current Alcohol Intake frequency: 0-2 drinks per day Alcohol type: wine Drug use: Daily Substance use type: marijuana Caregiver/Support person: No Household members: spouse Housing: house Communication Needs: None Do you need help understanding health information?: Never Pets and animals: Yes Pets and animals: dog(s) Sexually active: Yes Do you think of yourself as: straight/heterosexual Current gender identity: female What is your relationship status?: How often do you talk on the phone with friends or family?: three or more times per week How often do you get together with friends or relatives?: once per week How often do you attend episcopal or samaritan services?: 1-3 times per year Do you belong to any clubs or organized social groups?: yes Panel score (0-1 are the most socially isolated patients): 3 NHANES result reviewed/action taken: Yes What type of physical activity do you participate in: other Details: Pilates Duration: 45-60 minutes/day Frequency: 3-4 times per week Liliana/Restorationist: Mu-Ism Special liliana needs: No Seatbelt use: always Helmet use: Yes Helmet use: sometimes 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 Do you feel safe at home: Yes Do you feel safe in your relationship?: Yes Meds Allergies and Home Medications Allergies Allergy/AdvReac Type Severity Reaction Status Date / Time nickel Allergy Unknown Water Verified 09/03/24 15:08 blisters/Rash leather Allergy Mild Rash Uncoded 09/03/24 15:08 Home Medications ?Medication ?Instructions ?Recorded ?Confirmed ?Type mecobalamin (vitamin B12) 1,000 1,000 mcg sublingual DAILY #90 tabs 09/20/23 09/08/24 Rx mcg disintegrating tablet,sublingual metoprolol succinate 100 mg 100 mg PO DAILY #90 tabs 09/20/23 09/08/24 Rx tablet,extended release 24 hr clonazepam 0.5 mg tablet 0.5 mg PO BID PRN anxiety #10 tabs 10/23/23 09/08/24 Rx atorvastatin 10 mg tablet 10 mg PO DAILY #90 tabs 01/12/24 09/08/24 Rx triamterene 100 mg capsule 100 mg PO DAILY #90 caps 08/28/24 09/08/24 Rx Exam Const General: cooperative, healthy appearing and not in acute distress Neck Neck: normal visual inspection, no lymphadenopathy and supple Resp Effort & Inspection: normal respiratory effort Auscultation: clear to auscultation bilaterally Cardio Jugular venous pressure: no JVD Rate: regular rate Rhythm: regular rhythm Heart Sounds: S1 normal and S2 normal GI Inspection: normal to inspection Palpation: soft, no guarding, no hernias and nontender Percussion: normal to percussion Auscultation: normal bowel sounds Neuro General: patient alert, patient awake and patient oriented x3 Psych Appearance: grossly normal Results Last Vital Signs Temp 97.7 F 09/08/24 06:20 Pulse 80 09/08/24 06:20 Resp 16 09/08/24 06:20 BP 138/96 H 09/08/24 06:20 Pulse Ox 100 09/08/24 06:20
[2024-09-08 07:14] VITALS: BMI 27.8
[2024-09-08] MEDS: Lactated Ringers 1,000 ML 80 ML IV (07:14)
[2024-09-08 07:41] VITALS: BP 127/82; PULSE 64; RESP 16; TEMP 36.6; O2SAT 99
--- NOTE | 2024-09-08 07:42 | COLE_ITS ---
Date of service: 09/08/24 Time of Service: 07:43 Colonoscopy Report Date of procedure: 09/08/24 Pre-op diagnosis general: Screening colonoscopy Post-op diagnosis procedure note: other (Hemorrhoids, diverticulosis) Procedure: Colonoscopy Surgeon: Stephen Seay Anesthesia Type: General:No Airway Estimated blood loss (mL): 0 Pathology: none sent Complications: None Disposition: same day Indications: He is a 49-year-old woman who needs her for screening colonoscopy Prep: Miralax/Dulcolax Procedure Start Time: 07:22 Procedure End Time: 07:36 Retraction Time: 8 Findings: Internal/external hemorrhoids, diverticulosis Procedure Description: After the induction of anesthesia, and with the patient in left lateral decubitus position, I began by performing an external anorectal exam.? Perineum and skin were normal, as was the anal verge.? There are external hemorrhoids.? Next, I performed a digital rectal exam.? This was normal.? Next, I advanced a colonoscope into the rectal vault.? I performed retroflexion.? There are grade 1 internal hemorrhoids.? Using insufflation, I then advanced the colonoscope beyond the rectal folds and into the sigmoid colon before advancing towards the cecum.? The quality of the prep was excellent.? The scope was noted to be in the cecum by identification of the ileocecal valve and appendiceal orifice.? I then began withdrawing the colonoscope using repeated irrigation as necessary for full evaluation of the colonic mucosa. There is sigmoid diverticulosis beginning around 40 cm from the anal verge once the scope was withdrawn to the level of the rectum, great care was taken to examine portions of the rectal folds.? Finally, the scope was withdrawn and the patient was brought to the same-day surgery recovery unit as the anesthetic wore off. ?The findings and instructions were shared with the patient prior to discharge. Highland Bowel Prep Highland Bowel Prep Right Colon: 3 Left Colon: 3 Transverse Colon: 3 Total Score: 9
--- NOTE | 2024-09-08 08:06 | W.ANESPOSTOP ---
Postoperative Evaluation Date, Time and Location Date Performed: 09/08/24 Time Performed: 07:41 Patient Location: Day Surgery Unit Vital Signs Most Recent Imported Vital Signs: Most Recent Vital Signs Temp Pulse Resp BP Pulse Ox 36.6 C 64 16 127/82 99 09/08/24 07:41 09/08/24 07:41 09/08/24 07:41 09/08/24 07:41 09/08/24 07:41 Pain Score Most Recent Pain Score: Most Recent Pain Score Pain Level 0 09/08/24 07:41 Assessment Mental Status: Awake (Alert & Oriented to Patient Baseline) Airway and Respiratory Function: Patent airway with normal (patient baseline) respiratory exam Cardiovascular Function: Hemodynamically Stable Hydration Status: Adequately Hydrated Nausea & Vomiting: No Nausea or Vomiting Pain: Pt. Denies Any Pain Peripheral Nerve Block: Patient did not receive a nerve block
[2024-09-08 08:11] VITALS: BP 137/83; PULSE 54; RESP 16; TEMP 37; O2SAT 100
== END 2024-09-08 08:30 | disposition home or self-care (01) ==
LOC: SUR 06:04
PROVIDERS: PCP Family Medicine; Visit Provider Surgery
PROC: 0DJD8ZZ Inspection of Lower Intestinal Tract, Via Natural or Artificial Opening Endoscopic (ICD-10-PCS; CPT 45378; principal; 2024-09-08 07:30)
DX: Z12.11 Encounter for screening for malignant neoplasm of colon (principal); K57.30 Diverticulosis of large intestine without perforation or abscess without bleeding; K64.8 Other hemorrhoids
CPT/HCPCS: 45378; J2405; J2704

== ENCOUNTER 2024-10-31 00:38 | Outpatient (CLI) | payer OTHER, SELFPAY ==
[2024-10-31 08:25] LABS: Abs Immature Grans 0.04 10^3/uL (0.0-0.06); Absolute Basophil Count 0.09 10^3/uL (0.0-0.2); Absolute Eosinophil Count 0.33 10^3/uL (0.0-0.7); Absolute Monocyte Count 0.76 10^3/uL (0.1-0.8); Basophils % 0.8 %; Eosinophils % 2.9 %; HCT 41.9 % (36.0-46.0); HGB 13.7 g/dL (11.2-15.7); Immature Grans % 0.4 %; Lymphocytes % 21.9 %; MCH 33.4 pg (27.0-33.0); MCHC 32.7 % (32.0-36.0); MCV 102 fL (80-95); MPV 8.9 fL (8.0-11.0); Monocytes % 6.7 %; Neutrophils % 67.3 %; Platelet Count 276 10^3/uL (130-400); RDW 12.6 % (11.7-14.6); RDW-SD 47.4 fL; WBC 11.35 10^3/uL (4.4-10.8)
[2024-10-31 08:28] LABS: Absolute Lymphocyte Count 2.49 10^3/uL (1.2-3.4); Absolute Neutrophil Count 7.64 10^3/uL (1.2-6.7)
[2024-10-31 08:35] LABS: ESR 5 mm/hr (0-20)
[2024-10-31 08:44] LABS: C-Reactive Protein < 0.50 mg/dL (<or=0.5)
== END 2024-10-31 00:39 | disposition home or self-care (01) ==
LOC: LBO 00:38
PROVIDERS: Student in an Organized Health Care Education/Training Program; PCP Family Medicine; Visit Provider Family Medicine
DX: M75.21 Bicipital tendinitis, right shoulder (principal); S46.011A Strain of muscle(s) and tendon(s) of the rotator cuff of right shoulder, initial encounter
CPT/HCPCS: 36415; 85652; 85025; 86140

== ENCOUNTER 2024-11-18 02:20 | Outpatient (CLI) | payer OTHER, SELFPAY ==
--- NOTE | 2024-11-18 08:30 | DI.MRI_ITS ---
Exam(s) MR UPPER JOINT RT WO EXAM: MR UPPER JOINT RT WO CLINICAL HISTORY: R SHOULDER PAIN,S/P REPAIR 03/10, TENDONITIS LONG HEAD BICEPS,. TECHNIQUE: Multiplanar multisequence MRI was performed. COMPARISON: Plain films 25 Jan 2024. MRI 12 September 2023 FINDINGS: BONES: There is no fracture or contusion pattern. Screws in humeral head. JOINTS:The acromioclavicular joint shows mild inferior spurring. The glenohumeral joint shows mild degenerative changes. The humeral head appears superiorly position ed beneath the acromion.. TENDONS: Supraspinatus: Extremely thinned. There may be a few intact fibers. Infraspinatus: Extremely thin. There may there may be a few intact fibers. Subscapularis: Unremarkable. Teres [place]: Unremarkable. Biceps and [place]: The biceps tendon is not well seen proximally. Appears thinned distally. Full or partial-thickness tear is suspected. No significant fluid. MUSCLES: Severe supraspinatus and infraspinatus muscle atrophy. GLENOID LABRUM: Unremarkable on this noncontrast examination. SOFT TISSUES: Unremarkable. BURSAE: Subacromial and subdeltoid bursae . IMPRESSION: Prior infraspinatus and supraspinatus tendon repair with severe tendon thinning is also severe muscle atrophy. Upper biceps tendon is not well seen no suspicious for full-thickness tear. DATA REPOSITORY:
== END 2024-11-18 02:40 ==
PROVIDERS: PCP Family Medicine; Visit Provider Student in an Organized Health Care Education/Training Program
DX: S46.011A Strain of muscle(s) and tendon(s) of the rotator cuff of right shoulder, initial encounter; X58.XXXA Exposure to other specified factors, initial encounter
CPT/HCPCS: 73221

== ENCOUNTER 2025-01-13 00:26 | Outpatient (CLI) | payer OTHER, SELFPAY ==
[2025-01-13 13:12] LABS: Hemoglobin A1C 4.8 % (<5.7)
[2025-01-13 13:32] LABS: ALT 21 U/L (14-59); AST 17 U/L (15-37); Alkaline Phosphatase 79 U/L (46-116); Anion Gap 9.5 mmol/L (3-11); BUN 10 mg/dL (7-18); Bilirubin, Total 1.1 mg/dL (0.2-1.0); CO2 26.5 mmol/L (21.0-32.0); CREATININE 0.8 mg/dL (0.55-1.02); Calcium 9.3 mg/dL (8.5-10.1); Calculated LDL 103 mg/dL (<100); Chloride 106 mmol/L (98-107); Cholesterol 200 mg/dL (<200); Estimated GFR 90.27 (mL/min/1.73m2); Glucose 88 mg/dL (74-106); HDL Cholesterol 83 mg/dL (>or=50); Potassium 4.2 mmol/L (3.5-5.1); Sodium 142 mmol/L (136-145); TSH (W/Ref FT4) 1.19 uIU/mL (0.36-3.74); Total Protein 7.5 g/dL (6.4-8.2); Triglyceride 72 mg/dL (<150); Vitamin B12 454 pg/mL (193-986)
[2025-01-13 19:24] LABS: Hepatitis C Ab w Rflx HCV PCR Negative (Negative)
[2025-01-14 14:01] LABS: Albumin 62.2 % (55.8-66.1); Albumin g/dL 4.5 g/dL (3.6-5.2); Total Protein 7.2 g/dL (6.3-8.2)
== END 2025-01-13 00:27 | disposition home or self-care (01) ==
LOC: LOS 00:26
PROVIDERS: PCP Family Medicine; Visit Provider Family Medicine
DX: E11.9 Type 2 diabetes mellitus without complications (principal); Z00.00 Encounter for general adult medical examination without abnormal findings; G62.9 Polyneuropathy, unspecified; I10 Essential (primary) hypertension; E03.9 Hypothyroidism, unspecified; Z11.59 Encounter for screening for other viral diseases
CPT/HCPCS: 36415; 80053; 80061; 86803; 82607; 83036; 84165; 84443

== ENCOUNTER → 2025-07-21 00:49 | Outpatient (CLI) | payer OTHER, SELFPAY ==
--- NOTE | 2025-07-21 07:00 | DI.MAMMO_ITS ---
Exam(s) MAMMO SCREENING EXAM: MAMMO SCREENING CLINICAL HISTORY: screening,z12.39 TECHNIQUE: Bilateral full field digital CC and MLO mammographic images were obtained with 3D tomosynthesis and utilizing computer aided detection (CAD). COMPARISON: This is a baseline examination. There are no priors for comparison. FINDINGS: Masses/Architectural Distortion: No suspicious masses or areas of architectural distortion are present. Microcalcifications: There is a collection of microcalcifications in the upper outer quadrant of the right breast 7 cm from the nipple. Skin Thickening/Nipple Retraction: None. IMPRESSION: 1. Collection of microcalcifications in the upper outer quadrant of the right breast. 2. These calcification should be further evaluated with spot magnification views. BI-RADS Category 0 - Incomplete: Need additional imaging evaluation Breast Density - Category C - The breast are heterogeneously dense, which may obscure small masses. Breast density Category C or D implies that the patient has dense breast tissue. Dense breast tissue can make it harder to find cancer on a mammogram. Dense breast tissue is also associated with an increased risk of breast cancer. This information about the result of the mammogram report was provided to the patient to raise their awareness. Use this report when you speak with the patient about their risks for breast cancer, which includes their family history. At that time, you may recommend additional screening tests (Ultrasound or MRI) as these tests may add significant information. A negative radiographic report should not delay biopsy if a dominant or clinically suspicious mass is present. Up to ten percent of cancers are not identified on mammography. A negative report may reinforce clinical impression. Adenosis and dense breasts may obscure an underlying neoplasm. False positive reports average 6 to 10%. Patient will receive a letter notifying them of these results.
== END ==
LOC: DI 00:49
PROVIDERS: PCP Family Medicine; Visit Provider Family Medicine
DX: Z12.31 Encounter for screening mammogram for malignant neoplasm of breast (principal)
CPT/HCPCS: 77063; 77067

== ENCOUNTER → 2025-07-28 00:25 | Outpatient (CLI) | payer OTHER, SELFPAY ==
--- NOTE | 2025-07-28 | DI.US_ITS ---
Exam(s) MG MAMMO SCREEN CALL BACK UNI US BREAST RT COMPLETE EXAM: MG MAMMO SCREEN CALL BACK UNI RIGHT AND COMPLETE RIGHT BREAST ULTRASOUND CLINICAL HISTORY: F/U ABNL MAMMO, MICROCALCIFICATIONS UOQ RT BREAST. TECHNIQUE: Unilateral RIGHT BREAST 2D spot Mag mammographic images obtained. Complete RIGHT breast Ultrasound was also performed, including all 4 quadrants, the retroareolar region, and the ipsilateral axilla. COMPARISON: Prior mammograms were reviewed. This additional imaging was performed due to findings described on the recent BASELINE screening mammogram of 07/21/2025. FINDINGS: DIAGNOSTIC MAMMOGRAM: Additional 2D spot Mag views reveals these microcalcifications to be most probably benign. COMPLETE RIGHT BREAST ULTRASOUND: Ultrasound performed today reveals no evidence of solid or significant cystic lesions in all 4 quadrants. No evidence of a fibroadenoma. Scanning of the ipsilateral axilla reveals no significant adenopathy. IMPRESSION: 1. Right breast microcalcification group as described above. 2. Recommend repeat right breast mammogram and spot Mag views in 6 months The patient was informed of these findings and recommendations by myself prior to leaving the department today. BI-RADS Category 3 - 6 month - Probably Benign Finding: Recommend follow-up mammography in 6 months Breast Density - Category C - The breast are heterogeneously dense, which may obscure small masses. Breast density Category C or D implies that the patient has dense breast tissue. Dense breast tissue can make it harder to find cancer on a mammogram. Dense breast tissue is also associated with an increased risk of breast cancer. This information about the result of the mammogram report was provided to the patient to raise their awareness. Use this report when you speak with the patient about their risks for breast cancer, which includes their family history. At that time, you may recommend additional screening tests (Ultrasound or MRI) as these tests may add significant information. A negative radiographic report should not delay biopsy if a dominant or clinically suspicious mass is present. Up to ten percent of cancers are not identified on mammography. A negative report may reinforce clinical impression. Adenosis and dense breasts may obscure an underlying neoplasm. False positive reports average 6 to 10%. Patient will receive a letter notifying them of these results.
== END ==
LOC: DI 00:25
PROVIDERS: PCP Family Medicine; Visit Provider Family Medicine
DX: Z12.31 Encounter for screening mammogram for malignant neoplasm of breast (principal); R92.8 Other abnormal and inconclusive findings on diagnostic imaging of breast
CPT/HCPCS: 76642; 77063; 77067